=== PATIENT | male | born 2000 | race Hispanic/Latino ===

== ENCOUNTER 2019-10-24 20:08 | Emergency (ER) | payer BC ==
[~2019-10-24] VITALS: Ht 182.9 cm; Wt 81.8 kg
[2019-10-24] MEDS ORDERED: IBUPROFEN 600 MG TAB PO ONE (20:33)
[2019-10-24] MEDS ORDERED: PENICILLIN G BENZATHINE LA 1.2 MU TBX IM ONE (20:49)
[2019-10-24] MEDS ORDERED: IBUPROFEN 200 MG TAB ONE ×2 (20:56→21:01)
[2019-10-24] MEDS ORDERED: PENICILLIN G BENZATHINE LA 1.2 MU TBX ONE (20:56)
[2019-10-24 21:40] VITALS: BP 127/74
--- OUTSIDE RECORDS SUMMARY | 2019-11-01 11:34 | XMS REPORT ---
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 Allergies, Adverse Reactions, Alerts This patient has no known allergies or adverse reactions. Medications This patient has no known medications. Results Test Description Test Time Test Comments Text Results Atomic Results Result Comments U/S, TESTICULAR, WITH DOPPLER 2017-08-08 22:42:00 Reason for exam:->left testicle pain FINAL REPORT EXAM: SCROTAL/TESTICULAR ULTRASOUND WITH A TESTICULAR DUPLEX/DOPPLER. CLINICAL HISTORY: TESTICULAR PAIN. EVALUATE FOR TORSION. FINDINGS: A scrotal ultrasound was performed with a testicular Doppler including color-flow and spectral wave form analysis. The right testicle measures 3.6 x 1.6 x 2.4 cm. The left testicle measures 3.5 x 1.7 x 2.4 cm. The testicular echogenicity is homogeneous without discrete mass or fracture. Both testicles demonstrate arterial and venous Doppler flow. The right epididymal head measures 8 mm. The left epididymal head measures 8 mm. No evidence of epididymal hyperemia. No evidence of a discrete hydrocele or hematoma. There is a left varicocele. IMPRESSION: No evidence of testicular torsion, mass lesion, fracture, orchitis or epididymitis. Left varicocele. Signed: Tonie Hoyt MDReport Verified Date/Time: 08/08/2017 22:42:31 Reading Location: [address] Reading Room ALYSIS W/ REFLEX URINE CULTURE 2017-08-08 21:45:00 COLOR (BEAKER) (test zzwa=374) Dark Yellow CLARITY (BEAKER) (test aktb=889) Slightly Hazy SPECIFIC GRAVITY UA (BEAKER) (test vegd=083) 1.020 1.001-1.035 PH UA (BEAKER) (test gnds=541) 6.5 5.0-8.0 PROTEIN UA (BEAKER) (test loai=661) 30 mg/dL Negative GLUCOSE UA (BEAKER) (test dbqx=066) Negative Negative KETONES UA (BEAKER) (test umhy=821) Trace Negative BILIRUBIN UA (BEAKER) (test epzz=375) Positive Negative BLOOD UA (BEAKER) (test ekrt=206) Negative Negative NITRITE UA (BEAKER) (test jyxv=570) Negative Negative LEUKOCYTE ESTERASE UA (BEAKER) (test ausg=803) Negative Negative UROBILINOGEN UA (BEAKER) (test azeb=231) 0.2 mg/dL 0.2-1.0 BACTERIA (BEAKER) (test tbck=285) Rare MUCUS (BEAKER) (test wfot=3924) Many RBC UA-MANUAL (BEAKER) (test pxow=5797) None Seen /HPF WBC UA-MANUAL (BEAKER) (test sihw=8240) <5 /HPF SQUAMOUS EPITHELIAL MANUAL (BEAKER) (test advz=0369) <5 /HPF SOURCE(BEAKER) (test pkcb=0790)
== END 2019-10-24 21:15 | disposition home or self-care (01) ==
LOC: FSED 20:08
DX: J02.0 Streptococcal pharyngitis (principal)
CPT/HCPCS: 83518; 87400; 96372; 99283; J0561

== ENCOUNTER 2021-03-01 18:00 | Emergency (ER) | payer BC ==
[~2021-03-01] VITALS: Ht 185.4 cm; Wt 99.6 kg
[2021-03-01] MEDS ORDERED: PANTOPRAZOLE 40 MG 10ML VIAL IV STA (18:32)
[2021-03-01] MEDS ORDERED: SODIUM CHLORIDE 0.9% 1000ML 1,000 ML IV STA (18:32)
[2021-03-01] MEDS ORDERED: OMEPRAZOLE40 MG PO (18:44)
[2021-03-01] MEDS ORDERED: ZOFRAN4 MG PO (18:44)
[2021-03-01] MEDS ORDERED: ONDANSETRON HCL INJ 2MG/ML 2ML 2 MG/ML VIAL IV ONE (18:45)
[2021-03-01] MEDS ORDERED: SODIUM CHLORIDE 0.9% 1000ML 1,000 ML ONE (18:48)
[2021-03-01] MEDS ORDERED: DIPHENHYDRAMINE HCL INJ 50 MG/ML VIAL IV ONE (19:45)
[2021-03-01] MEDS ORDERED: DIPHENHYDRAMINE HCL INJ 50 MG/ML VIAL ONE (19:45)
[2021-03-01 21:39] VITALS: BP 124/62
== END 2021-03-01 21:40 | disposition home or self-care (01) ==
LOC: FSED 18:15
DX: R10.13 Epigastric pain (principal); R11.2 Nausea with vomiting, unspecified; K29.71 Gastritis, unspecified, with bleeding
CPT/HCPCS: 74177; 80048; 80076; 81003; 85025; 96374; 96375; 99284; C9113; J1200; J2405; J7030

== ENCOUNTER 2022-01-02 21:51 | Emergency (ER) | payer BC ==
[~2022-01-02] VITALS: Ht 185.4 cm; Wt 99.3 kg
[~2022-01-02 21:51] MED LIST: OMEPRAZOLE40 MG PO; ZOFRAN4 MG PO
[2022-01-02] MEDS ORDERED: LIDOCAINE HCL 1% LOCAL INJ 20 ML VIAL ONE (22:27)
[2022-01-02] MEDS ORDERED: TETANUS/DIPHTHERIA TOX ADULT 0.5 ML SYR ONE (22:27)
[2022-01-02] MEDS ORDERED: LIDOCAINE 1% 5ML-MPF INJ ONE (22:45)
[2022-01-02] MEDS ORDERED: TETANUS/DIPHTHERIA TOX ADULT 0.5 ML SYR IM ONE (22:45)
== END 2022-01-02 23:16 | disposition home or self-care (01) ==
LOC: FSED 21:57
DX: S61.213A Laceration without foreign body of left middle finger without damage to nail, initial encounter (principal); W25.XXXA Contact with sharp glass, initial encounter; Y99.0 Civilian activity done for income or pay
CPT/HCPCS: 12002; 90471; 90714; 99282; J2001